=== PATIENT | male | born 1990 | race Caucasian/White ===

== ENCOUNTER 2024-05-17 21:26 | Emergency (ER) | payer SELFPAY ==
[2024-05-17 21:27] VITALS: BP 166/101; PULSE 81; RESP 17; TEMP 36.7; O2SAT 98; BMI 30.9
--- NOTE | 2024-05-17 21:30 | ECG_ITS ---
[facility] Test Date: 2024-05-17 Pat Name: Deangelo Hernandez Department: Room: Gender: Male Abstract Clerk: : 1990 Requested By: Caridad Pruitt Order Number: [id number] Scott MD: Raad Ma M.D. Measurements Intervals [place] Rate: 91 P: 45 [place]: 168 QRS: 18 QRSD: 107 T: -23 QT: 356 QTc: 439 Interpretive Statements SINUS RHYTHM POSSIBLE LEFT ATRIAL ENLARGEMENT [-0.1mV P-WAVE IN V1/V2] INCOMPLETE RIGHT BUNDLE BRANCH BLOCK [90+ ms QRS DURATION, TERMINAL R IN V1/V2, 40+ ms S IN I/aVL/V4/V5/V6] NONSPECIFIC T-WAVE ABNORMALITY No previous ECG available for comparison Electronically Signed On 05-19-2024 21:17:03 [employer]ILDINGS SUPERVISOR by Raad Ma M.D. [email or web address]
--- NOTE | 2024-05-17 21:48 | XRR_ITS ---
PROCEDURE INFORMATION: Exam: XR Chest Exam date and time: 05/17/2024 9:58 PM Age: 34 years old Clinical indication: Pain; Chest pressure; Additional info: Chest pain TECHNIQUE: Imaging protocol: Radiologic exam of the chest. Views: 1 view. COMPARISON: No relevant prior studies available. FINDINGS: Lungs: Unremarkable. No consolidation. Pleural spaces: Unremarkable. No pleural effusion. No pneumothorax. Heart/Mediastinum: Unremarkable. No cardiomegaly. Bones/joints: Unremarkable. XR/XR chest 1V portable [id number] IMPRESSION: No acute findings.
--- NOTE | 2024-05-17 21:56 | W.ED.CHESTPA ---
HPI - Chest Pain General: Chief Complaint: Chest Pain Stated Complaint: chest pressure, high bp Time Seen by Provider: 05/17/24 21:46 History of Present Illness: 34-year-old man with no significant past medical history who presents emergency room with chest discomfort, headache and neck pain. He said this started earlier this evening. He had pain in the back of his neck and the back of his head. He had some tightness in his left chest. He checked his blood pressure and it was quite elevated at home. This has been going on for a few days now. Intermittently. No cough. No shortness of breath. No abdominal pain. No nausea or vomiting. Related Data Allergies Allergy/AdvReac Type Severity Reaction Status Date / Time No Known Allergies Allergy Verified 05/02/24 11:12 Review of Systems Narrative: Constitutional symptoms: Negative except as documented in HPI. Skin symptoms: Negative except as documented in HPI. Eye symptoms: Negative except as documented in HPI. ENMT symptoms: Negative except as documented in HPI. Respiratory symptoms: Negative except as documented in HPI. Cardiovascular symptoms: Negative except as documented in HPI. Gastrointestinal symptoms: Negative except as documented in HPI. Genitourinary symptoms: Negative except as documented in HPI. Musculoskeletal symptoms: Negative except as documented in HPI. Neurologic symptoms: Negative except as documented in HPI. Psychiatric symptoms: Negative except as documented in HPI. Endocrine symptoms: Negative except as documented in HPI. [facility] ED PFSH: Social History (Updated 01/28/21 @ 16:18 by Diana Bowen LPN) Smoking and tobacco/nicotine status: current every day tobacco/nicotine user Physical Exam Narrative: EXAM NARRATIVE: General: Alert, no acute distress. Skin: Warm, dry. Head: Normocephalic, atraumatic. Neck: Supple, trachea midline. Eye: Extraocular movements are intact. Ears, nose, mouth and throat: mucosa moist. Cardiovascular: Regular, Normal peripheral perfusion. Respiratory: Lungs are clear to auscultation, respirations are non-labored, breath sounds are equal, Symmetrical chest wall expansion. Gastrointestinal: Soft, Nontender, Non distended Musculoskeletal: Normal ROM, no deformity. Neurological: Alert and oriented, No focal neurological deficit observed. Psychiatric: Cooperative, appropriate mood & affect. Course Vital Signs: Vital signs: Vital Signs Temperature 98.1 F 05/17/24 21:27 Pulse Rate 81 05/17/24 21:27 Respiratory Rate 17 05/17/24 21:27 Blood Pressure 166/101 05/17/24 21:27 Pulse Oximetry 98 05/17/24 21:27 Oxygen Delivery Me thod Room Air 05/17/24 21:27 MDM - Chest Pain Medical Decision Making Differential diagnosis for patient with chest pain includes but is not limited to and based on the above HPI, review of systems and physical exam: Pneumonia. unstable angina. angina. Acute coronary syndrome / [place]. Pulmonary embolism. Costochondritis / musculoskeletal. Pleurisy. Pericarditis. Esophageal spasm. Pancreatis. Cholecystitis. Orders placed to evaluate differential diagnosis based on the above differential, HPI and physical exam EKG: Time 2129. Rate 91. Normal sinus rhythm, no ectopy, normal [place] & QRS intervals, This was reviewed and interpreted by myself the ER physician at 2134. Believe there is some slight interference here. Of that are nonspecific T wave abnormality. Repeat EKG: Time 2306. Rate 66. Normal sinus rhythm, No ST-T changes, no ectopy, normal [place] & QRS intervals, This was reviewed and interpreted by myself the ER physician at 2310. As compared to previous EKG interference seems to have resolved. The changes may have been interference or may have been related to his blood pressure being elevated. Otherwise I do not think this is ischemic changes. Chest x-ray: No acute process. No infiltrate. No pneumothorax. This was reviewed and interpreted by myself the emergency room physician. I also reviewed the radiology report. Lab Review: Laboratory results were reviewed and interpreted by myself the emergency room physician. Lab work is unremarkable. No leukocytosis. No anemia. No renal failure. Troponin is negative. I reviewed the patient's medical record. Reexamination: Patient remained stable. No increased work of breathing. No altered mental status. No focal motor deficits. Patient's blood pressure has improved significantly spontaneously. I discussed the findings with him and his brother. Discussed he likely needs follow-up with his primary care provider and continue to monitor his blood pressure. Assessment and plan: Noncardiac chest pain Hypertension - Discharged home - Discussed findings and plan with patient. Answered any questions. - All laboratory values were reviewed and interpreted personally by myself, the ER physician - All imaging was reviewed and interpreted personally by myself, the ER physician. - Evaluation and treatment of this problem were appropriate in the emergency setting Lab Data 05/17/24 21:55 05/17/24 21:55 Radiology Impressions Chest X-Ray 05/17/24 21:48 IMPRESSION: No acute findings. Laboratory Results WBC 9.67 10^3/uL (3.29-11.43) 05/17/24 21:55 RBC 4.59 10^6/uL (3.85-5.65) 05/17/24 21:55 Hgb 13.50 g/dL (11.27-16.99) 05/17/24 21:55 Hct 40.5 % (37-53) 05/17/24 21:55 MCV 88.2 fl (82-101) 05/17/24 21:55 MCH 29.4 pg (27-33) 05/17/24 21:55 MCHC 33.3 g/dL (30-55) 05/17/24 21:55 RDW 11.7 % (12.1-15.1) L 05/17/24 21:55 Plt Count 321 10^3/cmm (157-399) 05/17/24 21:55 MPV 9.4 fL (7.4-10.4) 05/17/24 21:55 Neut % (Auto) 68.8 % 05/17/24 21:55 Lymph % (Auto) 21.2 % 05/17/24 21:55 [place] % (Auto) 8.0 % 05/17/24 21:55 Eos % (Auto) 1.2 % 05/17/24 21:55 Baso % (Auto) 0.5 % 05/17/24 21:55 Neut # (Auto) 6.65 10^3/uL (1.8-7.7) 05/17/24 21:55 Lymph # (Auto) 2.1 10^3/uL (0.8-4.8) 05/17/24 21:55 [place] # (Auto) 0.8 10^3/uL (0.2-0.9) 05/17/24 21:55 Eos # (Auto) 0.1 10^3/uL (0.0-0.8) 05/17/24 21:55 Baso # (Auto) 0.1 10^3/uL (0.0-0.1) 05/17/24 21:55 Nucleated RBC % (auto) 0 % 05/17/24 21:55 Nucleated RBCs # 0.0 /100WBC 05/17/24 21:55 Sodium 137 mmol/L (136-145) 05/17/24 21:55 Potassium 3.7 mmol/L (3.5-5.1) 05/17/24 21:55 Chloride 101 mmol/L (98-107) 05/17/24 21:55 Carbon Dioxide 24 mmol/L (22-29) 05/17/24 21:55 Anion Gap 15.7 (5-19) 05/17/24 21:55 BUN 12 mg/dL (6-20) 05/17/24 21:55 Creatinine 1.0 mg/dL (0.7-1.2) 05/17/24 21:55 GFR Calculation 84.5 mL/min (90-130) L 05/17/24 21:55 Glucose 103 mg/dL (65-115) 05/17/24 21:55 Calculated Osmolality 284 mOsm/kg (285-295) L 05/17/24 21:55 Calcium 9.2 mg/dL (8.5-10.5) 05/17/24 21:55 Total Bilirubin 0.3 mg/dL (0.15-1.2) 05/17/24 21:55 AST 25 U/L (0-40) 05/17/24 21:55 ALT 24 U/L (0-41) 05/17/24 21:55 Alkaline Phosphatase 88 U/L (40-130) 05/17/24 21:55 Troponin T Baseline < 6 ng/L (0-15) 05/17/24 21:55 Total Protein 7.2 g/dL (6.6-8.7) 05/17/24 21:55 Albumin 4.6 g/dL (3.5-5.2) 05/17/24 21:55 Globulin 2.6 g/dL (1.3-4.6) 05/17/24 21:55 All radiology interpretation(s) finalized by discharge Discharge Plan Discharge Patient Disposition: Home Clinical Impression: Non-cardiac chest pain, Hypertension Condition: Stable Discharge Orders: Discharge ED (Routine); Ordered 05/17/24 Ordered By: Caridad Mei Referrals: [facility] [Other] Discharge Diet: Usual diet Discharge Activity: Resume usual activity Patient Instructions: Noncardiac Chest Pain (ED), Opioid Safety, Pain Management Activity Restrictions/Additional Instructions: Thank you for choosing [facility] for your healthcare needs today. Please realize this is an emergency room and that we are providing you with a medical screening exam and this may not be complete and all inclusive of all the testing and or work up that you may need to determine your ailment or severity of your illness. You have been screened and evaluated and felt safe for discharge. Health conditions do change or evolve sometimes and as such it is important that you follow up with your Primary Doctor to be re checked, 3-5 days is a general good time frame for follow up. You are always welcome to return to the ED for re assessment if your symptoms are worsening or you have new concerns Coding Level of Care Code ED Flight Operations Manager for Alee Lopez
[2024-05-17 22:02] LABS: Basophils # 0.1 10^3/uL (0.0-0.1); Basophils % 0.5 %; Eosinophils # 0.1 10^3/uL (0.0-0.8); Eosinophils % 1.2 %; Hematocrit 40.5 % (37-53); Lymphocytes # 2.1 10^3/uL (0.8-4.8); Lymphocytes % 21.2 %; Mean Corpuscular HGB Conc 33.3 g/dL (30-55); Mean Corpuscular Hemoglobin 29.4 pg (27-33); Mean Corpuscular Volume 88.2 fl (82-101); Mean Platelet Volume 9.4 fL (7.4-10.4); Monocytes # 0.8 10^3/uL (0.2-0.9); Neutrophils # 6.65 10^3/uL (1.8-7.7); Neutrophils % 68.8 %; Nucleated Red Blood Cells % 0 %; Platelet Count 321 10^3/cmm (157-399); Red Blood Count 4.59 10^6/uL (3.85-5.65); Red Cell Distribution Width 11.7 % (12.1-15.1); White Blood Count 9.67 10^3/uL (3.29-11.43)
[2024-05-17 22:20] LABS: Troponin(5th) Baseline < 6 ng/L (0-15)
[2024-05-17 22:22] LABS: Alanine Aminotransferase 24 U/L (0-41); Albumin Level 4.6 g/dL (3.5-5.2); Alkaline Phosphatase 88 U/L (40-130); Aspartate Amino Transferase 25 U/L (0-40); Blood Urea Nitrogen 12 mg/dL (6-20); Calcium 9.2 mg/dL (8.5-10.5); Carbon Dioxide 24 mmol/L (22-29); Chloride 101 mmol/L (98-107); Globulin 2.6 g/dL (1.3-4.6); Glomerular Filtration Rate 84.5 mL/min (90-130); Glucose 103 mg/dL (65-115); Osmolality Calculated 284 mOsm/kg (285-295); Sodium 137 mmol/L (136-145); Total Bilirubin 0.3 mg/dL (0.15-1.2); Total Protein 7.2 g/dL (6.6-8.7)
[2024-05-17 22:25] LABS: Anion Gap 15.7 (5-19); Potassium 3.7 mmol/L (3.5-5.1)
--- NOTE | 2024-05-17 23:06 | ECG_ITS ---
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 Measurements Intervals [place] Rate: 66 P: 36 MO: 198 QRS: 12 QRSD: 123 T: 0 QT: 381 QTc: 400 Interpretive Statements SINUS RHYTHM POSSIBLE RIGHT VENTRICULAR CONDUCTION DELAY [RSR (QR) IN V1/V2] NONSPECIFIC T-WAVE ABNORMALITY Compared to ECG 05/17/2024 21:30:44 Incomplete right bundle-branch block no longer present T-wave abnormality still present Electronically Signed On 05-22-2024 20:37:29 QUILT SEWER by Raad Ma M.D. [email or web address]
[2024-05-17 23:16] VITALS: BP 143/88; PULSE 67; RESP 20; O2SAT 98
== END 2024-05-17 23:15 | disposition home or self-care (01) ==
PROVIDERS: Emergency Provider Emergency Medicine
DX: R07.89 Other chest pain (principal); I10 Essential (primary) hypertension; Z72.0 Tobacco use
CPT/HCPCS: 36415; 71045; 80053; 84484; 85025; 93005; 99285